=== PATIENT | male | born 1955 | race Caucasian/White ===

== ENCOUNTER → 2021-11-05 15:30 | Outpatient (CLI) | payer BC, SELFPAY ==
--- NOTE | ~2021-11-05 | XR_ITS ---
XR lumbar spine min 4V DATE: 11/05/2021 16:03 INDICATION: Low back pain TECHNIQUE: AP, lateral, bilateral oblique views, coned lateral lumbosacral view COMPARISON: 09/07/2010 lumbar spine FINDINGS: There is mild dextroscoliosis of the lumbar spine. Included lower thoracic and lumbar pedic les are intact. No fracture or bone destruction. There is degenerative change at the apophyseal joints at L4-5 and L5-S1 in particular, with associate d grade 1 anterolisthesis at L4-5. There is mild degenerative disc disease and minimal retrolisthesis at L3-4. There is moderate degener ative disc disease at the remaining lumbar and lumbosacral interspaces. The sacroiliac joints are intact. Status post cholecystectomy. IMPRESSION: Mild dextro scoliosis Mild to moderate degenerative disc disease Grade 1 anterolisthesis at L4-5 due to degenerative change at the apophyseal joints Status post cholecystectomy Reviewed, dictated and finalized at location B. IMPRESSION: Mild dextro scoliosis Mild to moderate degenerative disc disease Grade 1 anterolisthesis at L4-5 due to degenerative change at the apophyseal soraya ints Status post cholecystectomy
== END ==
PROVIDERS: PCP Family Medicine; Visit Provider Family Medicine
DX: M54.50 Low back pain, unspecified (principal); M41.86 Other forms of scoliosis, lumbar region; M51.36 Other intervertebral disc degeneration, lumbar region; M43.16 Spondylolisthesis, lumbar region; Z90.49 Acquired absence of other specified parts of digestive tract
CPT/HCPCS: 72110

== ENCOUNTER 2022-06-08 09:01 | Outpatient (CLI) | payer MEDICARE, SELFPAY ==
[2022-06-08 19:31] LABS: Alanine Aminotransferase 38 U/L (6-50); Albumin Level 4.4 g/dL (3.5-5.1); Alkaline Phosphatase 72 U/L (38-126); Anion Gap 8 mmol/L (8-16); Aspartate Amino Transferase 51 U/L (17-59); Bilirubin,Total 0.7 mg/dL (0.2-1.3); Blood Urea Nitrogen 19 mg/dL (9-20); Calcium 9.3 mg/dL (8.4-10.2); Carbon Dioxide 32 mmol/L (22-30); Chloride 102 mmol/L (98-107); Cholesterol 207 mg/dL (0-200); Estimated Glomerular Filt Rate > 60; Glucose 78 mg/dL (65-110); HDL Direct 35 mg/dL; Potassium 4.1 mmol/L (3.4-5.0); Sodium 142 mmol/L (137-145); Triglycerides 268 mg/dL (<150)
[2022-06-08 19:42] LABS: LDL Cholesterol Direct 125 mg/dL
[2022-06-08 19:54] LABS: Hemoglobin A1C 5.2 % (<5.7)
[2022-06-08 20:00] LABS: Prostate Specific Antigen 2.8 ng/mL (< OR = 4.0)
== END 2022-06-08 09:02 | disposition home or self-care (01) ==
LOC: ANHGOSHLAB 09:03
PROVIDERS: PCP Family Medicine; Visit Provider Family Medicine
DX: R73.01 Impaired fasting glucose (principal); E78.5 Hyperlipidemia, unspecified; Z12.5 Encounter for screening for malignant neoplasm of prostate; I10 Essential (primary) hypertension
CPT/HCPCS: 36415; 80053; 80061; 83036; 84153; G0103

== ENCOUNTER → 2022-06-18 11:15 | Outpatient (CLI) | payer MEDICARE, SELFPAY ==
--- NOTE | ~2022-06-18 | MR_ITS ---
MRI of the lumbar spine Clinical History: Lower extremity numbness Technique: Axial T2-weighted images, and sagittal T1-weighted, T2-weighted, and T2 fat-sat images wer e acquired. Findings: There is no fracture or subluxation of the lumbar spine. Vertebral bodies maintain normal h eight and alignment. There are reactive marrow signal changes about the L5-S1 disc space due to under lying degenerative disc disease. No suspicious bone marrow signal abnormality seen. At L1-L2, there is mild facet arthropathy, without disc bulge or herniation. No spinal canal stenosis or neural foraminal narrowing. At L2-L3, there is no disc bulge or herniation. There is facet joint hypertrophy. No spinal canal vee nosis or neural foraminal narrowing. At L3-L4, there is no disc bulge or herniation. There is advanced facet joint hypertrophy. No spinal canal stenosis. Probable minimal right neural foraminal narrowing. Left neural foramen preserved. At L4-L5, there is minimal disc bulge with advanced facet arthropathy and probable prior laminectomy. No spinal canal stenosis. There is moderate to advanced bilateral neural foraminal narrowing, left w orse than right. At L5-S1, there is mild disc bulge with advanced facet arthropathy. No spinal canal stenosis. There i s severe bilateral neural foraminal narrowing, left worse than right. Paravertebral soft tissues are unremarkable. Impression: Moderate degenerative spondylosis, as detailed above, with multilevel neural foraminal narrowing. Reviewed, dictated and finalized at [facility]. Impression: Moderate degenerative spondylosis, as detailed above, with multilevel neural fo raminal narrowing.
== END ==
PROVIDERS: PCP Family Medicine; Visit Provider Family Medicine
DX: R20.0 Anesthesia of skin (principal); M43.06 Spondylolysis, lumbar region; M48.061 Spinal stenosis, lumbar region without neurogenic claudication
CPT/HCPCS: 72148

== ENCOUNTER 2023-04-13 09:17 | Outpatient (CLI) | payer MEDICARE, SELFPAY ==
[2023-04-13 13:12] LABS: Basophils Percent Auto 0.6 % (0.2-1.2); Eosinophils Absolute Auto 0.3 K/mm3 (0-0.3); Eosinophils Percent Auto 4.2 % (0-4.4); Hematocrit 46.5 % (42.0-52.0); Hemoglobin 14.9 g/dL (14.0-18.0); Immature Granulocyte Absolute 0.02 K/mm3 (0.00-0.031); Immature Granulocyte Percent A 0.3 % (0-0.5); Lymphocytes Absolute Auto 2.17 K/mm3 (0.9-3.2); Lymphocytes Percent Auto 33.5 % (18.3-44.2); Mean Corpuscular Hemoglobin 30.1 pg (26-34); Mean Corpuscular Volume 93.9 fl (80-100); Mean Platelet Volume 9.5 fl (7.4-10.4); Monocytes Absolute Auto 0.4 K/mm3 (0.1-0.6); Monocytes Percent Auto 6.8 % (2.6-8.5); Neutrophils Absolute Auto 3.5 K/mm3 (1.3-6.7); Neutrophils Percent Auto 54.6 % (45.5-73.1); Platelet Count Result 209 k/mm3 (150-375); Red Blood Count 4.95 M/mm3 (4.6-6.20); Red Cell Distribution Width 13.2 % (11.5-14.5); White Blood Count 6.5 K/mm3 (4.5-10.0)
[2023-04-13 13:36] LABS: Alanine Aminotransferase 24 U/L (6-50); Albumin Level 4.5 g/dL (3.5-5.1); Alkaline Phosphatase 62 U/L (38-126); Anion Gap 9 mmol/L (8-16); Aspartate Amino Transferase 31 U/L (17-59); Bilirubin,Total 0.9 mg/dL (0.2-1.3); Blood Urea Nitrogen 21 mg/dL (9-20); Calcium 9.1 mg/dL (8.4-10.2); Carbon Dioxide 29 mmol/L (22-30); Chloride 103 mmol/L (98-107); Cholesterol 188 mg/dL (0-200); Estimated Glomerular Filt Rate 55; Glucose 106 mg/dL (65-110); HDL Direct 33 mg/dL; Potassium 4.1 mmol/L (3.4-5.0); Sodium 141 mmol/L (137-145); Triglycerides 151 mg/dL (<150)
[2023-04-13 13:48] LABS: LDL Cholesterol Direct 120 mg/dL
[2023-04-13 13:57] LABS: Prostate Specific Antigen 4.8 ng/mL (< OR = 4.0)
== END 2023-04-13 09:18 | disposition home or self-care (01) ==
LOC: ANHGOSHLAB 09:19
PROVIDERS: PCP Family Medicine; Visit Provider Family Medicine
DX: R53.83 Other fatigue (principal); Z12.5 Encounter for screening for malignant neoplasm of prostate; Z13.228 Encounter for screening for other metabolic disorders; Z13.220 Encounter for screening for lipoid disorders; Z13.6 Encounter for screening for cardiovascular disorders
CPT/HCPCS: 36415; 80053; 80061; 84153; 85025; G0103

== ENCOUNTER 2023-05-11 08:22 | Outpatient (CLI) | payer MEDICARE, SELFPAY ==
[2023-05-11 13:08] LABS: Prostate Specific Antigen 3.1 ng/mL (< OR = 4.0)
== END 2023-05-11 08:23 | disposition home or self-care (01) ==
PROVIDERS: PCP Family Medicine; Visit Provider Family Medicine
DX: R97.20 Elevated prostate specific antigen [PSA] (principal)
CPT/HCPCS: 36415; 84153

== ENCOUNTER 2024-03-22 07:57 | Outpatient (CLI) | payer MEDICARE, SELFPAY ==
[2024-03-22 19:20] LABS: Alanine Aminotransferase 21 U/L (6-50); Albumin Level 4.3 g/dL (3.5-5.1); Alkaline Phosphatase 56 U/L (38-126); Anion Gap 2 mmol/L (4-12); Aspartate Amino Transferase 34 U/L (17-59); Bilirubin,Total 0.6 mg/dL (0.2-1.3); Blood Urea Nitrogen 28 mg/dL (9-20); Calcium 9.3 mg/dL (8.4-10.2); Carbon Dioxide 29 mmol/L (22-30); Chloride 106 mmol/L (98-107); Cholesterol 198 mg/dL (0-200); Estimated Glomerular Filt Rate 47; Glucose 100 mg/dL (65-110); HDL Direct 42 mg/dL; Potassium 4.2 mmol/L (3.4-5.0); Sodium 137 mmol/L (137-145); Triglycerides 185 mg/dL (<150)
[2024-03-22 19:31] LABS: LDL Cholesterol Direct 116 mg/dL
--- OUTSIDE RECORDS SUMMARY | 2024-03-29 10:21 | XMS_ITS ---
Care Plan - [facility] Created on: March 29, 2024 Gabino Beltran Blair : 1955 Sex: Male Author Organization [facility] Address [address] [place] [address] Phone Care Team Providers Care Sales Development Consultant Name Role Phone Unavailable Unavailable Unavailable
--- OUTSIDE RECORDS SUMMARY | 2024-03-29 10:21 | XMS_ITS ---
Author Organization [facility] [employer] [facility] Address [address] [place] [address] Phone Care Team Providers Care Gas Flow Regulator Name Role Phone Unavailable Unavailable Unavailable Problems Includes: Active, inactive, and resolved Problems No Active Problems Plan of Treatment Pending Tests Order Diagnosis Results Due Ordering Provider Radiology short list MRI Prostate Multiparametric Elevated prostate specific antigen [PSA] 12/06/23 Philipp Engle MD Last Documented On 4 7:44AM ; [facility] Lab PSA 05/28/24 Philipp Engle MD Last Documented On 4 2:16PM ; [facility] Future Appointments Date Time Location Provi mario alberto Follow up 06/05/2024 8:15AM [facility] Urology at [facility] Philipp Engle MD Last Documented On 4 12:12PM ; [facility] Assessments Includes: Assessments for all patient encounters No Assessments Recorded Medical Equipment - Implanted Devices Includes: Current and historical Devices No Medical Equipment Recorded Medications Includes: Current and historical Medications Current Medications (continue as prescribed) Lisinopril 20 MG Oral Tablet 11/22/2023 Provider: Diagnosis: Last Documented On 4 4:55PM By Opal Harding ; [facility] hydroCHLOROthiazide 12.5 MG Oral Tablet 11/22/2023 P rovider: Diagnosis: Last Documented On 4 4:55PM By Opal Harding ; [facility] Pravastatin Sodium 20 MG Oral Tablet 11/22/2023 Prov ider: Diagnosis: Last Documented On 4 4:57PM By Opal Harding ; [facility] Past Medications on file Ezetimibe 10 MG Oral Tablet 10/26/2023 - 01/24/2024 Pr ovider: Diagnosis: Last Documented On 11:28AM By Opal Harding ; [facility] Meloxicam 7.5 MG Oral Tablet 10/26/2023 - 01/24/2024 P rovider: Diagnosis: Last Documented On 11:28AM By Opal Harding ; [facility] dilTIAZem HCl ER Beads 180 M G Oral Capsule Extended Release 24 Hour 10/25/2023 - 01/23/2024 Provider: Diagnosis: Last Documented On 11:28AM By Opal Harding ; [facility] Medications Administered Includes: Administered Medications in patient's chart No Administered Medications Recorded Vital Signs Includes: Vital Signs through 03/29/2024 Vital Name 01/02/2024 11:30A 11/22/2023 04: 28P Blood Pressure Sitting (mmHg) 174/74 18 5/84 Pulse Rate-Sitting (bpm) 63 62 Respiration Rate (breaths/min) 18 18 Height (in) 72 72 Weight (lb) 200.8 202 Body Mass Index 27.2 27.4 Body Surface Area 2.1 2.1 Oxygen Saturation (%) 100 96 Last Documented: On 01/02/2024 11:32A M ; [facility] On 11/22/2023 4:32PM ; [facility] Results Includes: Results through 03/29/2024 CREATININE iSTAT [facility] Ordered by Philipp Engle MD on 12/11/19 24 Collected: 12/11/2023 Reported: 12/11/19 24 15:42 Last Documented On 4 12:10PM ; [facility] Reviewed by Nara Sparrow DNP, APRN on 12/12/2023; All test results are final unless otherwise noted. CREATININE iSTAT 1.4 mg/dL (0.6-1.3) H (High) Last Documented On 4 6:51PM ; [facility] Note: CC'd Providers: ,,,,,,,,,,,,,,,,,,,,,,,,,,,Specimen Number: [id number] Reported Physicians [facility] Ordered by Philipp Engle MD on 12/11/19 24 Collected: 12/11/2023 Reported: 12/11/19 24 15:42 Last Documented On 4 12:10PM ; [facility] Reviewed by Nara Sparrow DNP, APRN on 12/12/2023; All test results are final unless otherwise noted. Reported Physicians See Note None Last Documented On 12/11/2023 6:51PM ; [facility] Note: Reported Physicians:Ordering: Philipp EngleAttending: Philipp Engle History of Present Illness History of Present Illness not supported for this document type No History of Present Illness Recorded Social History Description Last Updated Never a smoker 01/02/2024 Last Documented On 4 2:16PM ; [facility] Use of tobacco assessment performed 09/2023 Last Documented On 4 2:16PM ; [facility] Smoking Status Unknown Procedures and Surgical History Includes: Procedures through 03/29/2024 Procedures Code Diagnosis Performing Provider Service Location Service Date Autom urinalysis wo micro (CLIA Waved Test) 24908 Elevated prostate specific antigen [PSA] Philipp Engle MD [facility] Urology at [facility] 11/22/2023 Last Documented On 4 2:14PM ; [facility] Medical History Includes: Medical History in patient's chart No Medical History Recorded Family History Includes: Family History in patient's chart No Family History Recorded Review of Systems Review of Systems not supported for this document type No Review of Systems Recorded Mental Status No Mental Status Recorded Functional Status No Functional Status Recorded Physical Exam Physical Exam not supported for this document type No Physical Exam Recorded Allergies Includes: Active, inactive, and resolved Allergies Substance Type Reaction Onset Date Resolved Date Statu s Penicillins Allergy Skin Rashes / Er uption of skin, Hives / Urticaria 11/22/2023 Active Last Documented On 4 11:29AM ; [facility] Encounters Includes: Encounters through 03/29/2024 Encounter Provider Location Date Check-In Time Check-Out Time Diagnosis Follow up Philipp Engle MD [facility] Urology at [facility] 4 10:14AM 12:12PM New Patient (15') Philipp Engle MD [facility] Urology at [facility] 4 3:41PM 11:59PM Insurance Includes: Active Insurance Policies Plan Name Member ID Group # Subscriber Relationship Effect kenneth Dates 1 - Medicare : [id number] Gabino Beltran Self 2 - [facility] / Supp:supp [id number] Gabino Beckwith Clinical Notes Includes: Signed Clinical Notes starting from 04/16/2022 * Progress note Date Encounter Last Documented by 01/02/2024 Follow up Last documented on 01/02/2024; 2:16 PM, Philipp Engle MD; [facility] Chief Complaint elev psa baseline 3 to 3.1 to 4.6 to 5.7 History of Present Illness Gabino Beltran is a 68 year old male. - Allergy list reviewed - Problem list reviewed - Medication list reviewed elev psa baseline 3 to 3.1 to 4.6 to 5.7 Prostate volume MRI is 40 cc PSA D = 0.14 MRI no malignancy Tests Urinalysis Was Performed: Urinalysis Results: Value Urine pH 6.0 An automated urinalysis without microscopic exam and urine appearance clear. Urine specific gravity 1.010, protein negative, glucose negative, bilirubin negative, urobilinogen normal, nitrate negative, ketones negative, leukocyte esterase negative, and occult blood negative. Previous Tests Treatment Procedures: - Colonoscopy 08/27/2023 Social History Tobacco use: Never a smoker. - Use of tobacco assessment performed Review Of Systems Denies Chest pain, shortness of breath Denies fever or chills Denies Nausea/vomiting Physical Findings - Vitals taken 01/02/2024 11:30 am BP-Sitting 174/74 mmHg Pulse Rate-Sitting 63 bpm Respiration Rate 18 per min Height 72 in Weight 200 lbs 12.8 oz Body Mass Index 27.2 kg/m2 Body Surface Area 2.1 m2 Oxygen Saturation 100 % Physician's Services: For adult: Value - Screening for adult depression: - 0 01/02/2024 impression and score PHQ2 Abd soft, nontender, nondistended Alert and oriented x 3 Extremities warm with no swelling ANICETO 50 grams firm , irregular but no hard nodules Counseling/Education - Weight Management/Dietary advice Education User Defined 28 Bothered by feelings of sadness, depression or helplessness in the past month was 0 and loss of pleasure from usual activities was 0. Patient screened for future fall risk documentation of no falls in past year; Standardized depression screening: negative for symptoms No significant symptoms, PHQ2 score 0-4. 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 Chief Complaint elev psa baseline 3 to 3.1 to 4.6 to 5.7 History of Present Illness Chilo Beltran is a 68 year old male. - Allergy list reviewed - Problem list reviewed - Medication list reviewed elev psa baseline 3 to 3.1 to 4.6 to 5.7 Tests Urinalysis Was Performed: Urinalysis Results: Value Urine pH 6.0 An automated urinalysis without microscopic exam and urine appearance clear. Urine specific gravity 1.010, protein negative, glucose negative, bilirubin negative, urobilinogen normal, nitrate negative, ketones negative, leukocyte esterase negative, and occult blood negative. Previous Tests Treatment Procedures: - Colonoscopy 08/27/2023 Social History Tobacco use: Never a smoker. - Use of tobacco assessment performed Review Of Systems Denies Chest pain, shortness of breath Denies fever or chills Denies Nausea/vomiting Physical Findings - Vitals taken 11/22/2023 04:28 pm BP-Sitting 185/84 mmHg Pulse Rate-Sitting 62 bpm Respiration Rate 18 per min Height 72 in Weight 202 lbs Body Mass Index 27.4 kg/m2 Body Surface Area 2.1 m2 Oxygen Saturation 96 % Physician's Services: For adult: Value - Screening for adult depression: - 0 11/22/2023 impression and score PHQ2 Abd soft, nontender, nondistended Alert and oriented x 3 Extremities warm with no swelling ANICETO 50 grams firm , irregular but no hard nodules User Defined 28 Bothered by feelings of sadness, depression or helplessness in the past month was 0 and loss of pleasure from usual activities was 0. Patient screened for future fall risk documentation of no falls in past year; Standardized depression screening: negative for symptoms No significant symptoms, PHQ2 score 0-4. 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
--- OUTSIDE RECORDS SUMMARY | 2024-03-29 10:22 | XMS_ITS | Clinical Summary ---
Author Organization [facility] [employer] [facility] Address [address] [place] [address] Phone Care Team Providers Care Director Of Digital Platforms Name Role Phone Unavailable Unavailable Unavailable Reason for Visit and Chief Complaint Follow up Problems Includes: Problems addressed during this encounter and other active Problems No Active Problems Plan of Treatment mp MRI reviewed and no cancer psa / free psa in 6 months - Last Documented On 01/02/2024 2:16PM ; [facility] Pending Tests Order Diagnosis Results Due Ordering Provider Radiology short list MRI Prostate Multiparametric Elevated prostate specific antigen [PSA] 12/06/23 Philipp Engle MD Last Documented On 4 7:44AM ; [facility] Lab PSA 05/28/24 Philipp Engle MD Last Documented On 4 2:16PM ; [facility] Future Appointments Date Time Location Provi mario alberto Follow up 06/05/2024 8:15AM [facility] Philipp Engle MD Last Documented On 4 12:12PM ; [facility] Assessments Includes: Assessments from this encounter Findings elev psa - Last Documented On 01/02/2024 2:16PM ; [facility] baseline 3 to 3.1 to 4.6 to 5.7 - Last Documented On 01/02/2024 2:16PM ; [facility] 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 Medical Equipment - Implanted Devices Includes: Current Devices No Medical Equipment Recorded Medications Includes: Medications discussed during this encounter and other current Medications Current Medications (continue as prescribed) Lisinopril 20 MG Oral Tablet 11/22/2023 Provider: Diagnosis: Last Documented On 4 4:55PM By Opal Harding ; [facility] hydroCHLOROthiazide 12.5 MG Oral Tablet 11/22/2023 P tiffanyder: Diagnosis: Last Documented On 4 4:55PM By Opal Harding ; [facility] Pravastatin Sodium 20 MG Oral Tablet 11/22/2023 Prov ider: Diagnosis: Last Documented On 4 4:57PM By Opal Harding ; [facility] Medications Administered Includes: Administered Medications from this encounter No Administered Medications Recorded Vital Signs Includes: Vital Signs from this encounter Vital Name 01/02/2024 11:30A Blood Pressure Sitting (mmHg) 174/74 Pulse Rate-Sitting (bpm) 63 Respiration Rate (breaths/min) 18 Height (in) 72 Weight (lb) 200.8 Body Mass Index 27.2 Body Surface Area 2.1 Oxygen Saturation (%) 100 Last Documented: On 01/02/2024 11:32A M ; [facility] [employer] [facility] Results Includes: Results discussed during this encounter No Results Recorded For Specified Dates History of Present Illness Includes: History of Present Illness from this encounter DIDI Beltran is a 68 year old male. - Allergy list reviewed - Problem list reviewed - Medication list reviewed elev psa baseline 3 to 3.1 to 4.6 to 5.7 Prostate volume MRI is 40 cc PSA D = 0.14 MRI no malignancy Bothered by feelings of sadness, depression or helplessness in the past month was 0 and loss of pleasure from usual activities was 0. Patient screened for future fall risk documentation of no falls in past year; Standardized depression screening: negative for symptoms No significant symptoms, PHQ2 score 0-4. Social History Description Last Updated Never a smoker 01/02/2024 Last Documented On 4 2:16PM ; [facility] Use of tobacco assessment performed 09/2023 Last Documented On 4 2:16PM ; [facility] Smoking Status Unknown Procedures and Surgical History Includes: Procedures from this encounter Procedures Code Diagnosis Performing Provider Service L ocation Service Date urine specific gravity 1.010 17554 Last Documented On 4 12:02PM ; [facility] urine pH 6.0 96751 Last Documented On 4 12:02PM ; [facility] urine glucose negative Last Documented On 4 12:02PM ; [facility] urine ketones negative Last Documented On 4 12:02PM ; [facility] urine bilirubin negative Last Documented On 4 12:02PM ; [facility] urine protein negative Last Documented On 4 12:02PM ; [facility] urine leukocyte esterase negative [id number] Last Documented On 4 12:02PM ; [facility] urine nitrate negative Last Documented On 4 12:02PM ; [facility] urine urobilinogen normal Last Documented On 4 12:02PM ; [facility] an automated urinalysis without microscopic exam [id number] Last Documented On 4 12:02PM ; [facility] urinalysis results - occult blood negative 24651 Last Documented On 4 12:02PM ; [facility] urine appearance clear Last Documented On 4 12:02PM ; [facility] colonoscopy 08/27/2023 [id number] Last Documented On 4 11:34AM ; [facility] Medical History Includes: Medical History addressed during this encounter No Medical History Recorded Family History Includes: Family History addressed during this encounter No Family History Recorded Review of Systems Includes: Review of Systems from this encounter Denies Chest pain, shortness of breath Denies fever or chills Denies Nausea/vomiting Mental Status Includes: Mental Status from this encounter No Mental Status Recorded Functional Status Includes: Functional Status from this encounter No Functional Status Recorded Physical Exam Includes: Physical Exam from this encounter Allergies Includes: Active Allergies Substance Type Reaction Onset Date Resolved Date Statu s Penicillins Allergy Skin Rashes / Er uption of skin, Hives / Urticaria 11/22/2023 Active Last Documented On 4 11:29AM ; [facility] Encounters Encounter Provider Location Date Check-In Time Check-Out Time Diagnosis Follow up Philipp Engle MD [facility] 4 10:14AM 12:12PM Insurance Includes: Active Insurance Policies Plan Name Member ID Group # Subscriber Relationship Effect kenneth Dates 1 - Medicare : [id number] Gabino Beltran Self 2 - [facility] / Supp:supp [id number] Gabino Beltran Self Clinical Notes Includes: Clinical Notes from this encounter * Progress note Date Encounter Last Documented by 01/02/2024 Follow up Last documented on 01/02/2024; 2:16 PM, Philipp Engle MD; [facility] 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
--- OUTSIDE RECORDS SUMMARY | 2024-03-29 10:22 | XMS_ITS | Clinical Summary ---
Author Organization [facility] [employer] Address [address] [place] [address] Phone Care Team Providers Care Shove Up Name Role Phone Unavailable Unavailable Unavailable Reason for Visit and Chief Complaint New Patient (15') Problems Includes: Problems addressed during this encounter and other active Problems No Active Problems Plan of Treatment mp MRI - Last Documented On 11/22/2023 5:15PM ; [facility] Pending Tests Order Diagnosis Results Due Ordering Provider Radiology short list MRI Prostate Multiparametric Elevated prostate specific antigen [PSA] 12/06/23 Philipp Engle MD Last Documented On 4 7:44AM ; [facility] Lab PSA 05/28/24 Philipp Engle MD Last Documented On 4 2:16PM ; [facility] Future Appointments Date Time Location Provi mario alberto Follow up 06/05/2024 8:15AM [facility] hPilipp Engle MD Last Documented On 4 12:12PM ; [facility] Assessments Includes: Assessments from this encounter Findings elev psa - Last Documented On 11/22/2023 5:15PM ; [facility] baseline 3 to 3.1 to 4.6 to 5.7 - Last Documented On 11/22/2023 5:15PM ; [facility] 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 Medical Equipment - Implanted Devices Includes: Current Devices No Medical Equipment Recorded Medications Includes: Medications discussed during this encounter and other current Medications Current Medications (continue as prescribed) Lisinopril 20 MG Oral Tablet 11/22/2023 Provider: Diagnosis: Last Documented On 4 4:55PM By Opal Harding ; [facility] hydroCHLOROthiazide 12.5 MG Oral Tablet 11/22/2023 P tiffanyder: Diagnosis: Last Documented On 4 4:55PM By Opal Harding ; [facility] [employer] Pravastatin Sodium 20 MG Oral Tablet 11/22/2023 Prov ider: Diagnosis: Last Documented On 4 4:57PM By Opal Harding ; [facility] Medications Administered Includes: Administered Medications from this encounter No Administered Medications Recorded Vital Signs Includes: Vital Signs from this encounter Vital Name 11/22/2023 04:28P Blood Pressure Sitting (mmHg) 185/84 Pulse Rate-Sitting (bpm) 62 Respiration Rate (breaths/min) 18 Height (in) 72 Weight (lb) 202 Body Mass Index 27.4 Body Surface Area 2.1 Oxygen Saturation (%) 96 Last Documented: On 11/22/2023 4:32PM ; [facility] [employer] [facility] Results Includes: Results discussed during this encounter No Results Recorded For Specified Dates History of Present Illness Includes: History of Present Illness from this encounter DIDI Beltran is a 68 year old male. - Allergy list reviewed - Problem list reviewed - Medication list reviewed elev psa baseline 3 to 3.1 to 4.6 to 5.7 Bothered by feelings of sadness, depression or helplessness in the past month was 0 and loss of pleasure from usual activities was 0. Patient screened for future fall risk documentation of no falls in past year; Standardized depression screening: negative for symptoms No significant symptoms, PHQ2 score 0-4. Social History Description Last Updated Never a smoker 11/22/2023 Last Documented On 4 5:15PM ; [facility] Use of tobacco assessment performed 10/27 Last Documented On 4 5:15PM ; [facility] Smoking Status Unknown Procedures and Surgical History Includes: Procedures from this encounter Procedures Code Diagnosis Performing Provider Service Location Service Date Autom urinalysis wo micro (CLIA Waved Test) 91291 Elevated prostate specific antigen [PSA] Philipp Engle MD [facility] 11/22/2023 Last Documented On 4 2:14PM ; [facility] urine specific gravity 1.010 93261 Last Documented On 4 4:13PM ; [facility] urine pH 6.0 95226 Last Documented On 4 4:13PM ; [facility] urine glucose negative Last Documented On 4 4:13PM ; [facility] urine ketones negative Last Documented On 4 4:13PM ; [facility] urine bilirubin negative Last Documented On 4 4:13PM ; [facility] urine protein negative Last Documented On 4 4:13PM ; [facility] urine leukocyte esterase negative 87416 Last Documented On 4 4:13PM ; [facility] urine nitrate negative Last Documented On 4 4:13PM ; [facility] urine urobilinogen normal Last Documented On 4 4:13PM ; [facility] an automated urinalysis without microscopic exam 62498 Last Documented On 4 4:13PM ; [facility] urinalysis results - occult blood negative 86541 Last Documented On 4 4:13PM ; [facility] urine appearance clear Last Documented On 4 4:13PM ; [facility] colonoscopy 08/27/2023 12405 Last Documented On 4 4:28PM ; [facility] Medical History Includes: [...] Active Last Documented On 4 11:29AM ; [facility] Encounters Encounter Provider Location Date Check-In Time Check-Out Time Diagnosis New Patient (15') Philipp Engle MD [facility] 4 3:41PM 11:59PM Insurance Includes: Active Insurance Policies Plan Name Member ID Group # Subscriber Relationship Effect [id number] Dates 1 - Medicare : [id number] Gabino Beltran Self 2 - Aar / Supp:supp [id number] Gabino Beckwith Clinical Notes Includes: Clinical Notes from this encounter * Progress note Date Encounter Last Documented by 11/22/2023 New Patient (15') Last documente d on 11/22/2023; 5:15 PM, Philipp Engle MD; [facility] 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
== END 2024-03-22 07:58 | disposition home or self-care (01) ==
LOC: ANHGOSHLAB 07:59
PROVIDERS: PCP Family Medicine; Visit Provider Family Medicine
DX: E78.5 Hyperlipidemia, unspecified (principal); Z13.220 Encounter for screening for lipoid disorders; Z13.228 Encounter for screening for other metabolic disorders
CPT/HCPCS: 36415; 80053; 80061

== ENCOUNTER 2024-06-20 08:13 | Outpatient (CLI) | payer MEDICARE, SELFPAY ==
--- OUTSIDE RECORDS SUMMARY | 2024-06-20 08:21 | XMS_ITS | Patient Health Record ---
Author Organization [facility] Address [address] [place] [address] Care Team Providers Care Encoding Clerk Name Role Phone Esteban Street DO Primary Care Provider Deysi Bone HEEL LINING PASTER, FIDENCIO Unavailable ALLERGIES Allergen (clinical drug ingredient) Drug/Non Drug Allergy documented on EMR Reaction Allergy Type Onset Date Status penicillin V Penicillin V Potassium Unknown Drug Allergy Active REASON FOR REFERRAL No Information MEDICATIONS Medication SIG (Take, Route, Frequency, Duration) Notes Start Date End Date Status Lisinopril Active Pravastatin Sodium A ctive hydroCHLOROthiazide Active Cartia XT Not-Taking Ezetimibe Active acetaZOLAMIDE Not-Ta raymond Dicyclomine HCl 20 MG 1 tablet Orally up to 3-4 times a day for abdominal pain for 30 day(s) 10/20/2018 Not-Taking SOCIAL HISTORY Tobacco Use: Social History Observation Description Date Details (start date - stop date) Never Smoker NA - NA Sex Assigned At : Social History Observation Description Sex Assigned At Unknown Tobacco Use/Smoking Question Answer Notes Are you a nonsmoker PROBLEMS Problem Type ICD Code Onset Dates Problem Status W/U Status Risk SNOMED Code Notes Problem Irritable bowel syndrome without diarrhea (K58.9) Active confirmed Irritable bowel syndrome (50524551) Problem Right lower quadrant pain (R10.31) Active confirmed Right lower quadrant pain (445249472) Problem Family history of malignant neoplasm of digestive organs (Z80.0) Active confirmed Family history of malignant neoplasm of gastrointestinal tract (200012536) Problem Personal history of colonic polyps (Z86.010) Active confirmed History of poly p of colon (situation) (616913423) PLAN OF TREATMENT Pending Test Test Name Order Date CT Scan : Abdomen and Pelvis with contra st 10/12/2018 Colonoscopy 04/08/2023 Comp. Metabolic Panel (14) 10/20/2018 CBC 10/20/2018 Insurance Providers Payer Name Payer Address Payer Phone Subscriber Number Group Number Insured Name Patient Relationship to Insured Coverage Start Date Coverage End Date Medicare-I L Medicare [address] [place] [id number] Gabino Beltran Self - patient is the insured [facility] Medicare Supplement [address] [employer] CLAIM DIVISION [place], [place] [id number] Devin Gabino Self - patient is the insured MEDICAL (GENERAL) HISTORY Medical History History ICD Code Hypertension Hyperlipidemia Hx colon polyps Gallbladder disease IBS Sleep apnea Surgical History Surgery Date(Month/Year) Neck surgery Cholecystectomy 2011 EGD/EUS 03/2012 Aslam mild g astritis with bile in stomach, o/w neg. Some changes s/o chronic pancreatitis Colonoscopy 01/2012 Normal 3 yr f/u Colonoscopy 2008delilah Normal. Colonoscopy 2005 Aliperti adenomatous po lyp x 1 Colonoscopy 02/2016 Stephy ich Small rectal polyp, removed. Otherwise normal. 5 y r f/u Path hyperplastic EGD 02/2016 Perla Normal. Duo bx n eg. colonoscopy 04/16 Perla- hyperplast ic polyps-repeat in 4 years.
--- OUTSIDE RECORDS SUMMARY | 2024-06-20 08:21 | XMS_ITS | Clinical Summary ---
Author Organization [facility] [employer] Address [address] [facility] [place] [address] Care Team Providers Care White Lead Grinder Name Role Phone Kiko Hodgson MD Primary Care Provider [phone] Source Comments [facility] [employer],non-owned Affiliates and Associated Physician Practices is amultiple site organization consisting of ambulatory clinics and hospital sitesin [place], [place], [place] and [place]. This disclosure is being madepursuant to the Care Everywhere program and may not contain all information available regarding this patient. Last updated 17.[facility] [employer] Allergies Active Allergy Reactions Criticality Noted Date Comments Penicillins 01/15/2014 Medications * Be aware that medications may not be up to date on this document. Alwaysverify current medications with the patient. Medication Sig Dispensed Refills Start Date End Date Status rosuvastatin (CRESTOR) 5 MG tablet Take 5 mg by mouth once daily. Active lisinopril (PRINIVIL; ZESTRIL) 20 MG tablet Take 20 mg by mouth once daily. Active Probiotic Product (PROBIOTIC DAILY PO) Take by mouth once daily. Active Cholecalciferol (VITAMIN D-3) 1000 UNITS CAPS Take by mouth once daily. Active Cyanocobalamin (VITAMIN B-12) 5000 MCG SUBL Dissolve under the tongue once daily. Active [place]-3 Fatty Acids (FISH OIL PO) Take by mouth once daily. 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 Family History Medical History Relation Name Comments Cancer Father Relation Name Status Comments Father Social History Tobacco Use Types Packs/Day Years Used Date Smoking Tobacco: Never Smokeless Tobacco: Never Alcohol Use Standard Drinks/Week Comments Yes 0 (1 standard drink = 0.6 oz pur e alcohol) 2 DRINKS PER DAY Sex and Gender Information Value Date Recorded Sex Assigned at Not on file Gender Identity Not on file Sexual Orientation Not on file Last Filed Vital Signs Vital Sign Reading Time Taken Comments Blood Pressure 150/85 01/25/2014 12:41 PM CDT Pulse 85 01/25/2014 12:41 PM CDT Temperature - - Respiratory Rate - - Oxygen Saturation - - Inhaled Oxygen Concentration - - Weight 88.5 kg (195 lb) 01/25/2014 12:41 PM CDT Height 182.9 cm (6') 01/15/2014 11:16 AM CDT Body Mass Index 26.45 01/15/2014 11:16 AM CDT Plan of Treatment Health Maintenance Due Date Last Done Comments COLOGUARD (AGES 45-75) - COL ON CA SCREENING 1957 COLON MONITORING 1957 COLONOSCOPY - COLON CA SCREENING 1957 CT COLONOGRAPHY - COLON CA SCREENING 1955 Colorectal Cancer Screening 1955 FIT - COLON CA SCREENING 1957 FLEX SIG - COLON CA SCREENING 1955 HEPATITIS C SCREENING 05/27/1975 DTAP/TDAP/TD VACCINES (1 - Tdap) 1976 PNEUMOCOCCAL VACCINE 50+ (1 of 1 - PCV) 06/01/2007 ZOSTER VACCINE (1 of 2) 06/01/2007 COVID-19 VACCINE ( - 2023-2 5 season) 2023 INFLUENZA VACCINE (#1) 2023 DEPRESSION SCREENING 03/28/2024 Respiratory Syncytial Virus (RSV) Vaccine Pt: or over 60 yrs (1 - 1-dose 75+ series) 2032 HEPATITIS B VACCINE Aged Out No longe r eligible based on patient's age to complete this topic HIB VACCINE Aged Out No longer eligi ble based on patient's age to complete this topic HPV VACCINE Aged Out No longer eligi ble based on patient's age to complete this topic MENINGOCOCCAL (Group B) VACC INE SHARED DECISION-MAKING Aged Out No longer eligibl e based on patient's age to complete this topic MENINGOCOCCAL GROUPS A/C/Y/W VACCINE Aged Out No longer eligible b ased on patient's age to complete this topic Care Teams White Lead Grinder Relationship Specialty Start Date End Date Kiko Hodgson MD [address] [place] [id number] PCP - General Family Medicine 01/09/14
--- OUTSIDE RECORDS SUMMARY | 2024-06-20 08:21 | XMS_ITS ---
Author Organization [facility] Address [address] [place] [address] Care Team Providers Care Supervisor Lending Activities Name Role Phone Esteban Street DO Primary Care Provider Unavailab Bone WHEELCHAIR VAN OPERATOR FIRST RESPONDER, FIDENCIO Whalen Encounters Encounter Location Date Provider Diagnosis [facility] [address] [facility] [address] [place] [address] 04/08/2023 FIDENCIO ZAMORANO PLAN OF TREATMENT No Information Progress Notes * Gabino BELTRAN GDOB: [birth year] (67 yo M)Acc No.[id number]:04/08/2023 Patient: Gabino BETLRAN :1955 Age:67 Y Sex:Male Address:[address] [place] [address], [phone] * true * Date:
--- OUTSIDE RECORDS SUMMARY | 2024-06-20 08:21 | XMS_ITS ---
Care Plan - [facility] Created on: June 20, 2024 Gabino Beltran : 1955 Sex: Male Author Organization [facility] Address [address] [place] [address] Phone Care Team Providers Care Director Search Marketing Strategies Name Role Phone Unavailable Unavailable Unavailable
--- OUTSIDE RECORDS SUMMARY | 2024-06-20 08:22 | XMS_ITS | Clinical Summary ---
Author Organization [facility] [employer] Address [address] [place] [address] Phone Care Team Providers Care Flat Bed Operator Name Role Phone Unavailable Unavailable Unavailable Reason for Visit and Chief Complaint Follow up Problems Includes: Problems addressed during this encounter and other active Problems Current Visit Onset Date Resolved Date Provider Conditio n Status Serum Prostate-specific Antigen (Psa) Elevated Unknown Philipp Engle MD Active Last Documented On 5 8:44AM ; [facility] Benign Prostatic Hypertrophy Unknown Philipp Engle MD Active Last Documented On 5 8:44AM ; [facility] Plan of Treatment psa / free psa in 6 months - Last Documented On 06/05/2024 9:05AM ; [facility] Pending Tests Order Diagnosis Results Due Ordering Provider Radiology short list MRI Prostate Multiparametric Elevated prostate specific antigen [PSA] 12/06/23 Philipp Engle MD Last Documented On 4 7:44AM ; [facility] Lab PSA 05/28/24 Philipp Engle MD Last Documented On 4 2:16PM ; [facility] Lab PSA - Free & Total 12/07/24 Nara Sparrow DNP [employer] Last Documented On 5 9:15AM ; [facility] Future Appointments Date Time Location Provi mario alberto Follow up 01/08/2025 8:00AM [facility] Philipp Engle MD Last Documented On 5 9:17AM ; [facility] Assessments Includes: Assessments from this encounter Findings elev psa - Last Documented On 06/05/2024 9:05AM ; [facility] baseline 3 to 3.1 to 4.6 to 5.7 to 3.9 - Last Documented On 06/05/2024 9:05AM ; [facility] negative MRI of prostate - Last Documented On 06/05/2024 9:05AM ; [facility] post void dribble - Last Documented On 06/05/2024 9:05AM ; [facility] nocturi 1-2 x - Last Documented On 06/05/2024 9:05AM ; [facility] 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 Medical Equipment - Implanted Devices Includes: Current Devices No Medical Equipment Recorded Medications Includes: Medications discussed during this encounter and other current Medications Discontinued / Stopped on this date on 11/22/2023 Pravastatin Sodium 20 MG Oral Tablet Prov ider: Diagnosis: Last Documented On 5 8:39AM By Opal Harding ; [facility] Current Medications (continue as prescribed) Rosuvastatin Calcium 20 MG Oral Tablet 03/29/2024 - Provider: Diagnosis: Last Documented On 5 8:39AM By Opal Harding ; [facility] Lisinopril 20 MG Oral Tablet 11/22/2023 Provider: Diagnosis: Last Documented On 4 4:55PM By Opal Harding ; [facility] hydroCHLOROthiazide 12.5 MG Oral Tablet 11/22/2023 P rovider: Diagnosis: Last Documented On 4 4:55PM By Opal Harding ; [facility] Past Medications on file Ezetimibe 10 MG Oral Tablet 10/26/2023 - 01/24/2024 Pr ovider: Diagnosis: Last Documented On 4 11:28AM By Opal Harding ; [facility] Meloxicam 7.5 MG Oral Tablet 10/26/2023 - 01/24/2024 P rovider: Diagnosis: Last Documented On 4 11:28AM By Opal Harding ; [facility] dilTIAZem HCl ER Beads 180 M G Oral Capsule Extended Release 24 Hour 10/25/2023 - 01/23/2024 Provider: Diagnosis: Last Documented On 4 11:28AM By Opal Harding ; [facility] Medications Administered Includes: Administered Medications from this encounter No Administered Medications Recorded Vital Signs Includes: Vital Signs from this encounter Vital Name 06/05/2024 08:40A Blood Pressure Sitting (mmHg) 153/69 Pulse Rate-Sitting (bpm) 64 Respiration Rate (breaths/min) 18 Height (in) 72 Weight (lb) 199.8 Body Mass Index 27.1 Body Surface Area 2.1 Oxygen Saturation (%) 100 Last Documented: On 06/05/2024 8:42AM ; [facility] Results Includes: Results discussed during this encounter No Results Recorded For Specified Dates History of Present Illness Includes: History of Present Illness from this encounter DIDI Beltran is a 69 year old male. - Allergy list reviewed - Problem list reviewed - Medication list reviewed Presents for elevated PSA 05/28/2024 PSA - 3.9 No urinary issues baseline 3 to 3.1 to 4.6 to 5.7 to 3.9 12/11/2023 mpMRI - Benign Prostate volume MRI is 40 cc PSA D = 0.14 Bothered by feelings of sadness, depression or helplessness in the past month was 0 and loss of pleasure from usual activities was 0. Patient screened for future fall risk documentation of no falls in past year; Standardized depression screening: negative for symptoms No significant symptoms, PHQ2 score 0-4. Social History Description Last Updated Never a smoker 01/02/2024 Last Documented On 5 8:44AM ; [facility] [employer] [facility] [employer] Use of tobacco assessment performed 09/2023 Last Documented On 5 8:44AM ; [facility] [employer] [facility] [employer] Smoking Status Unknown Procedures and Surgical History Includes: Procedures from this encounter Procedures Code Diagnosis Performing Provider Service L ocation Service Date colonoscopy 04/28/2023 97661 Last Documented On 5 8:39AM ; [facility] [employer] Medical History Includes: Medical History addressed during this encounter No Medical History Recorded Family History Includes: Family History addressed during this encounter No Family History Recorded Review of Systems Includes: Review of Systems from this encounter Constitutional: Patient denies fever, chills, and weight loss. Gastrointestinal: Patient denies abdominal pain, nausea/vomiting, and change in bowels. Genitourinary: Patient denies incontinence, painful urination, and blood in urine. Remaining 12 point ROS are negative Mental Status Includes: Mental Status from this encounter No Mental Status Recorded Functional Status Includes: Functional Status from this encounter No Functional Status Recorded Physical Exam Includes: Physical Exam from this encounter Immunizations Includes: Immunizations addressed during this encounter Vaccine Dose # Date Site Reaction(s) Status Source Influenza 6 mos + Trivalent PF 0.5ml FLUZONE 1 12/27/2023 Complete (Reported) Patient Last Documented On 5 8:40AM ; [facility] Influenza 65 and older Triva lent High Dose PF 0.5ml FLUAD 1 12/27/2023 Complete (Reported) Patient Last Documented On 5 8:40AM ; [facility] Allergies Includes: Active Allergies Substance Type Reaction Onset Date Resolved Date Statu s Penicillins Allergy Skin Rashes / Er uption of skin, Hives / Urticaria 11/22/2023 Active Last Documented On 5 8:39AM ; [facility] Encounters Encounter Provider Location Date Check-In Time Check-Out Time Diagnosis Follow up Philipp Engle MD [facility] 5 8:12AM 10:13AM Insurance Includes: Active Insurance Policies Plan Name Member ID Group # Subscriber Relationship Effect kenneth Dates 1 - Medicare : [id number] Gabino Beltran Self 2 - [facility] / Supp:supp [id number] Gabino Beckwith Clinical Notes Includes: Clinical Notes from this encounter * Progress note Date Encounter Last Documented by 06/05/2024 Follow up Last documented on 06/05/2024; 9:05 AM, Philipp Engle MD; [facility] Active Problems & Conditions - Benign Prostatic Hypertrophy - Serum Prostate-specific Antigen (Psa) Elevated Chief Complaint elev psa History of Present Illness Gabino Beltran is a 69 year old male. - Allergy list reviewed - Problem list reviewed - Medication list reviewed Presents for elevated PSA 05/28/2024 PSA - 3.9 No urinary issues baseline 3 to 3.1 to 4.6 to 5.7 to 3.9 12/11/2023 mpMRI - Benign Prostate volume MRI is 40 cc PSA D = 0.14 Previous Tests Treatment Procedures: - Colonoscopy 04/28/2023 Current Medication - hydroCHLOROthiazide 12.5 MG Oral Tablet Once a day 0 days, 0 refills - Lisinopril 20 MG Oral Tablet Once a day 0 days, 0 refills - Rosuvastatin Calcium 20 MG Oral Tablet Once a day 90 days, 0 refills Social History Tobacco use: Never a smoker. - Use of tobacco assessment performed Allergies - Penicillins Reaction: Hives / Urticaria, Skin Rashes / Eruption of skin Review Of Systems Constitutional: Patient denies fever, chills, and weight loss. Gastrointestinal: Patient denies abdominal pain, nausea/vomiting, and change in bowels. Genitourinary: Patient denies incontinence, painful urination, and blood in urine. Remaining 12 point ROS are negative Physical Findings - Vitals taken 06/05/2024 08:40 am BP-Sitting 153/69 mmHg Pulse Rate-Sitting 64 bpm Respiration Rate 18 per min Height 72 in Weight 199 lbs 12.8 oz Body Mass Index 27.1 kg/m2 Body Surface Area 2.1 m2 Oxygen Saturation 100 % Physician's Services: For adult: Value - Screening for adult depression: - 0 06/05/2024 impression and score PHQ2 General: Well nourished, in no distress Head/Neck: Normocephalic/atraumatic. Extraocular movements intact. Midline trachea. 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
--- OUTSIDE RECORDS SUMMARY | 2024-06-20 08:22 | XMS_ITS | Clinical Summary ---
Author Organization [facility] [employer] Address [address] [place] [address] Phone Care Team Providers Care Logging Worker Name Role Phone Unavailable Unavailable Unavailable Reason for Visit and Chief Complaint New Patient (15') Problems Includes: Problems addressed during this encounter and other active Problems No Active Problems Plan of Treatment mp MRI - Last Documented On 11/22/2023 5:15PM ; [facility] Pending Tests Order Diagnosis Results Due Ordering Provider Radiology short list MRI Prostate Multiparametric Elevated prostate specific antigen [PSA] 12/06/23 Philipp Engle MD Last Documented On 4 7:44AM ; [facility] Lab PSA 05/28/24 Philipp Engle MD Last Documented On 4 2:16PM ; [facility] Future Appointments Date Time Location Provi mario alberto Follow up 01/08/2025 8:00AM [facility] Philipp Engle MD Last Documented On 5 9:17AM ; [facility] Assessments Includes: Assessments from this encounter Findings elev psa - Last Documented On 11/22/2023 5:15PM ; [facility] baseline 3 to 3.1 to 4.6 to 5.7 - Last Documented On 11/22/2023 5:15PM ; [facility] 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 Medical Equipment - Implanted Devices Includes: Current Devices No Medical Equipment Recorded Medications Includes: Medications discussed during this encounter and other current Medications Current Medications (continue as prescribed) Rosuvastatin Calcium 20 MG Oral Tablet 03/29/2024 - Provider: Diagnosis: Last Documented On 5 8:39AM By Opal Harding ; [facility] Lisinopril 20 MG Oral Tablet 11/22/2023 Provider: Diagnosis: Last Documented On 4 4:55PM By Opal Harding ; [facility] hydroCHLOROthiazide 12.5 MG Oral Tablet 11/22/2023 [place] tiffanyder: Diagnosis: Last Documented On 4 4:55PM By Opal Harding ; [facility] Medications Administered Includes: Administered [...] 96 Last Documented: On 11/22/2023 4:32PM ; [facility] Results Includes: Results discussed during [...] 11/22/2023 Last Documented On 4 5:15PM ; [facility] Use of tobacco assessment performed 10/27 Last Documented On 4 5:15PM ; [facility] Smoking Status Unknown Procedures and Surgical History Includes: Procedures from this encounter Procedures Code Diagnosis Performing Provider Service Location Service Date Autom urinalysis wo micro (CLIA Waved Test) 94580 Elevated prostate specific antigen [PSA] Philipp Engle MD [facility] 11/22/2023 Last Documented On 4 2:14PM ; [facility] urine specific gravity 1.010 71667 Last Documented On 4 4:13PM ; [facility] urine pH 6.0 69044 Last Documented On 4 4:13PM ; [facility] urine glucose negative Last Documented On 4 4:13PM ; [facility] urine ketones negative Last Documented On 4 4:13PM ; [facility] urine bilirubin negative Last Documented On 4 4:13PM ; [facility] urine protein negative Last Documented On 4 4:13PM ; [facility] urine leukocyte esterase negative [id number] Last Documented On 4 4:13PM ; [facility] urine nitrate negative Last Documented On 4 4:13PM ; [facility] urine urobilinogen normal Last Documented On 4 4:13PM ; [facility] an automated urinalysis without microscopic exam [id number] Last Documented On 4 4:13PM ; [facility] urinalysis results - occult blood negative [id number] Last Documented On 4 4:13PM ; [facility] urine appearance clear Last Documented On 4 4:13PM ; [facility] colonoscopy 08/27/2023 [id number] Last Documented On 4 4:28PM ; [facility] Medical History Includes: Medical [...] Active Last Documented On 5 8:39AM ; [facility] Encounters Encounter Provider Location Date Check-In Time Check-Out Time Diagnosis New Patient (15') Philipp Engle MD [facility] 4 3:41PM 11:59PM Insurance Includes: Active Insurance Policies Plan Name Member ID Group # Subscriber Relationship Effect kenneth Dates 1 - Medicare : [id number] Gabino Beckwith 2 - [facility] / Supp:supp [id number] Gabino Beckwith Clinical Notes Includes: Clinical Notes from this encounter * Progress note Date Encounter Last Documented by 11/22/2023 New Patient (15') Last documente d on 11/22/2023; 5:15 PM, Philipp Engle MD; [facility] 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
--- OUTSIDE RECORDS SUMMARY | 2024-06-20 08:22 | XMS_ITS ---
Author Organization [facility] [employer]. Address [address] [place] [address] Phone Care Team Providers Care Market Research Analyst Name Role Phone Unavailable Unavailable Unavailable Problems Includes: Active, inactive, and resolved Problems All Visits Onset Date Resolved Date Provider Condition S tatus Serum Prostate-specific Antigen (Psa) Elevated Unknown Philipp Engle MD Active Last Documented On 5 8:44AM ; [facility] Benign Prostatic Hypertrophy Unknown Philipp Engle MD Active Last Documented On 5 8:44AM ; [facility] Plan of Treatment Pending Tests Order Diagnosis Results Due Ordering Provider Radiology short list MRI Prostate Multiparametric Elevated prostate specific antigen [PSA] 12/06/23 Philipp Engle MD Last Documented On 4 7:44AM ; [facility] Lab PSA 05/28/24 Philipp Engle MD Last Documented On 4 2:16PM ; [facility] Lab PSA - Free & Total 12/07/24 Nara Sparrow DNP [facility] Last Documented On 5 9:15AM ; [facility] Future Appointments Date Time Location Provi mario alberto Follow up 01/08/2025 8:00AM [facility] Urology [facility] Philipp Engle MD Last Documented On 5 9:17AM ; [facility] Assessments Includes: Assessments for all patient encounters No Assessments Recorded Medical Equipment - Implanted Devices Includes: Current and historical Devices No Medical Equipment Recorded Medications Includes: Current and historical Medications Current Medications (continue as prescribed) Rosuvastatin Calcium 20 MG Oral Tablet 03/29/2024 - Provider: Diagnosis: Last Documented On 5 8:39AM By Opal Harding ; [facility] Lisinopril 20 MG Oral Tablet 11/22/2023 Provider: Diagnosis: Last Documented On 4 4:55PM By Opal Harding ; [facility] hydroCHLOROthiazide 12.5 MG Oral Tablet 11/22/2023 P rovider: Diagnosis: Last Documented On 4 4:55PM By Opal Harding ; [facility] Past Medications on file Pravastatin Sodium 20 MG Oral Tablet 11/22/2023 - 05/26 Provider: Diagnosis: Last Documented On 5 8:39AM By Opal Harding ; [facility] Ezetimibe 10 MG Oral Tablet 10/26/2023 - 01/24/2024 Pr ovider: Diagnosis: Last Documented On 11:28AM By Opal Harding ; [facility] Meloxicam 7.5 MG Oral Tablet 10/26/2023 - 01/24/2024 P rovider: Diagnosis: Last Documented On 11:28AM By Opal Harding ; [facility] dilTIAZem HCl ER Beads 180 M G Oral Capsule Extended Release 24 Hour 10/25/2023 - 01/23/2024 Provider: Diagnosis: Last Documented On 4 11:28AM By Opal Harding ; [facility] Medications Administered Includes: Administered Medications in patient's chart No Administered Medications Recorded Vital Signs Includes: Vital Signs through 06/20/2024 Vital Name 06/05/2024 08:40A 01/02/2024 11:30A 11/21 04:28P Blood Pressure Sitting (mmHg) 153/69 174/74 185/84 Pulse Rate-Sitting (bpm) 64 63 62 Respiration Rate (breaths/min) 18 18 18 Height (in) 72 72 72 Weight (lb) 199.8 200.8 202 Body Mass Index 27.1 27.2 27.4 Body Surface Area 2.1 2.1 2.1 Oxygen Saturation (%) 100 100 96 Last Documented: On 06/05/2024 8:42AM ; [facility] On 01/02/2024 11:32AM ; [facility] On 11/22/2023 4:32PM ; [facility] Results Includes: Results through 06/20/2024 PSA, TOTAL [facility] Ordered by Philipp Engle MD on 05/28/2024 [address] [facility] [place], [address] Collected: 05/28/2024 Report ed: 05/28/2024 22:05 tel:[phone] Last Documented On 8:25AM ; [facility] Reviewed by Nara Sparrow DNP [facility] on 05/29/2024; All test results are final unless otherwise noted. PSA, TOTAL 3.90 ng/mL (< OR = 4.00) N (Normal) Last Documented On 10:23PM ; [facility] Note: The total PSA value from this assa y system is standardized against the WHO standard. The test result will be approximately 20% lower when compared to the equimolar-standardized total PSA ([place]). Comparison of serial PSA results should be interpreted with this fact in mind. This test was performed using the Siemens chemiluminescent method. Values obtained from different assay methods cannot be usedinterchangeably. PSA levels, regardless ofvalue, should not be interpreted as absoluteevidence of the presence or absence of disease. Reported Physicians [facility] Ordered by Philipp Engle MD on 05/29/19 [address] [place], [address] Collected: 05/28/2024 Report ed: 05/28/2024 22:07 tel:[phone] Last Documented On 8:25AM ; [facility] Reviewed by Nara Sparrow DNP [facility] on 05/29/2024; All test results are final unless otherwise noted. Reported Physicians See Note None Last Documented On 05/28/2024 10:23PM ; [facility] Note: Reported Physicians:Ordering: Philipp Engle [facility] Ordered by Philipp Engle MD on 12/11/19 Collected: 12/11/2023 Reported: 12/11/19 15:42 Last Documented On 12:10PM ; [facility] Reviewed by Nara Sparrow DNP [facility] on 12/12/2023; All test results are final unless otherwise noted. CREATININE iSTAT 1.4 mg/dL (0.6-1.3) H (High) Last Documented On 4 6:51PM ; [facility] Note: CC'd Providers: ,,,,,,,,,,,,,,,,,,,,,,,,,,,Specimen Number: [id number] Reported Physicians [facility] Ordered by Philipp Engle MD on 12/11/19 Collected: 12/11/2023 Reported: 12/11/19 15:42 Last Documented On 4 12:10PM ; [facility] Reviewed by Nara Sparrow DNP [facility] on 12/12/2023; All test results are final unless otherwise noted. Reported Physicians See Note None Last Documented On 12/11/2023 6:51PM ; [facility] Note: Reported Physicians:Ordering: Philipp EngleAttending: Philipp Engle History of Present Illness History of Present Illness not supported for this document type No History of Present Illness Recorded Social History Description Last Updated Never a smoker 01/02/2024 Last Documented On 4 2:16PM ; [facility] Use of tobacco assessment performed 09/2023 Last Documented On 4 2:16PM ; [facility] Smoking Status Unknown Procedures and Surgical History Includes: Procedures through 06/20/2024 Procedures Code Diagnosis Performing Provider Service Location Service Date Autom urinalysis wo micro (CLIA Waved Test) 1950[address] Elevated prostate specific antigen [PSA] Philipp Engle MD [facility] 11/22/2023 Last Documented On 4 2:14PM ; [facility] Medical History Includes: [...] this document type No Physical Exam Recorded Immunizations Includes: Immunizations in patient's chart Vaccine Dose # Date Site Reaction(s) Status Source Influenza 6 mos + Trivalent PF 0.5ml FLUZONE 1 12/27/2023 Complete (Reported) Patient Last Documented On 5 8:40AM ; [facility] Influenza 65 and older Triva lent High Dose PF 0.5ml FLUAD 1 12/27/2023 Complete (Reported) Patient Last Documented On 5 8:40AM ; [facility] Allergies Includes: Active, inactive, and resolved Allergies Substance Type Reaction Onset Date Resolved Date Statu s Penicillins Allergy Skin Rashes / Er uption of skin, Hives / Urticaria 11/22/2023 Active Last Documented On 5 8:39AM ; [facility] Encounters Includes: Encounters through 06/20/2024 Encounter Provider Location Date Check-In Time Check-Out Time Diagnosis Follow up Philipp Engle MD [facility] 5 8:12AM 10:13AM Follow up Philipp Engle MD [facility] 4 10:14AM 12:12PM New Patient (15') Philipp Engle MD [facility] 4 3:41PM 11:59PM Insurance Includes: Active Insurance Policies Plan Name Member ID Group # Subscriber Relationship Effect kenneth Dates 1 - Medicare : [id number] Gabino Beltran Self 2 - [facility] / Supp:supp [id number] Gabino Beckwith Clinical Notes Includes: Signed Clinical Notes starting from 04/16/2022 * Progress note Date Encounter Last Documented by 06/05/2024 Follow up Last documented on 06/05/2024; 9:05 AM, Philipp Engle MD; [facility] 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
--- OUTSIDE RECORDS SUMMARY | 2024-06-20 08:22 | XMS_ITS | Clinical Summary ---
Author Organization [facility] Address [address] [place] [address] Phone Care Team Providers Care Lasting Room Supervisor Name Role Phone Unavailable Unavailable Unavailable Reason for Visit and Chief Complaint Follow up Problems Includes: Problems addressed during this encounter and other active Problems All Visits Onset Date Resolved Date Provider Condition S tatus Serum Prostate-specific Antigen (Psa) Elevated Unknown Philipp Engle MD Active Last Documented On 5 8:44AM ; [facility] Benign Prostatic Hypertrophy Unknown Philipp Engle MD Active Last Documented On 5 8:44AM ; [facility] Plan of Treatment mp MRI reviewed and no cancer psa / free psa in 6 months - Last Documented On 01/02/2024 2:16PM ; [facility] Pending Tests Order Diagnosis Results Due Ordering Provider Radiology short list MRI Prostate Multiparametric Elevated prostate specific antigen [PSA] 12/06/23 Philipp Engle MD Last Documented On 4 7:44AM ; [facility] Lab PSA 05/28/24 Philipp Engle MD Last Documented On 4 2:16PM ; [facility] Future Appointments Date Time Location Provi mario alberto Follow up 01/08/2025 8:00AM [facility] Urology at [facility] Philipp Engle MD Last Documented On 5 9:17AM ; [facility] Assessments Includes: Assessments from this encounter Findings elev psa - Last Documented On 01/02/2024 2:16PM ; [facility] baseline 3 to 3.1 to 4.6 to 5.7 - Last Documented On 01/02/2024 2:16PM ; [facility] 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 Medical Equipment - Implanted Devices Includes: Current Devices No Medical Equipment Recorded Medications Includes: Medications discussed during this encounter and other current Medications Current Medications (continue as prescribed) Rosuvastatin Calcium 20 MG Oral Tablet 03/29/2024 - Provider: Diagnosis: Last Documented On 8:39AM By Opal Harding ; [facility] Lisinopril 20 MG Oral Tablet 11/22/2023 Provider: Diagnosis: Last Documented On 4:55PM By Opal Harding ; [facility] hydroCHLOROthiazide 12.5 MG Oral Tablet 11/22/2023 P tiffanyder: Diagnosis: Last Documented On 4:55PM By Opal Harding ; [facility] [email or web address] [facility] Medications Administered Includes: Administered Medications from this encounter No Administered Medications Recorded Vital Signs Includes: Vital Signs from this encounter Vital Name 01/02/2024 11:30A Blood Pressure Sitting (mmHg) 174/74 Pulse Rate-Sitting (bpm) 63 Respiration Rate (breaths/min) 18 Height (in) 72 Weight (lb) 200.8 Body Mass Index 27.2 Body Surface Area 2.1 Oxygen Saturation (%) 100 Last Documented: On 01/02/2024 11:32A M ; [facility] Results Includes: Results discussed during this [...] 01/02/2024 Last Documented On 4 2:16PM ; [facility] Use of tobacco assessment performed 09/2023 Last Documented On 4 2:16PM ; [facility] Smoking Status Unknown Procedures and Surgical History Includes: Procedures from this encounter Procedures Code Diagnosis Performing Provider Service L ocation Service Date urine specific gravity 1.010 19028 Last Documented On 4 12:02PM ; [facility] urine pH 6.0 76194 Last Documented On 4 12:02PM ; [facility] urine glucose negative Last Documented On 4 12:02PM ; [facility] urine ketones negative Last Documented On 4 12:02PM ; [facility] urine bilirubin negative Last Documented On 4 12:02PM ; [facility] urine protein negative Last Documented On 4 12:02PM ; [facility] urine leukocyte esterase negative [id number] Last Documented On 4 12:02PM ; [facility] urine nitrate negative Last Documented On 4 12:02PM ; [facility] urine urobilinogen normal Last Documented On 4 12:02PM ; [facility] an automated urinalysis without microscopic exam [id number] Last Documented On 4 12:02PM ; [facility] urinalysis results - occult blood negative [id number] Last Documented On 4 12:02PM ; [facility] urine appearance clear Last Documented On 4 12:02PM ; [facility] colonoscopy 08/27/2023 [id number] Last Documented On 4 11:34AM ; [facility] Medical History Includes: Medical [...] Active Last Documented On 5 8:39AM ; [facility] Encounters Encounter Provider Location Date Check-In Time Check-Out Time Diagnosis Follow up Philipp Engle MD [facility] at [facility] 4 10:14AM 12:12PM Insurance Includes: Active Insurance Policies Plan Name Member ID Group # Subscriber Relationship Effect kenneth Dates 1 - Medicare : [id number] Gabino Beltran Self 2 - [employer] / Supp:supp [id number] Gabino Beckwith Clinical Notes Includes: Clinical Notes from this encounter * Progress note Date Encounter Last Documented by 01/02/2024 Follow up Last documented on 01/02/2024; 2:16 PM, Philipp Engle MD; [facility] 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
--- OUTSIDE RECORDS SUMMARY | 2024-06-20 08:23 | XMS_ITS | Clinical Summary ---
Author Organization [facility] Address [facility] [address] [place] [address] Care Team Providers Care Dark Room Attendant Name Role Phone Esteban Street Primary Care Provider [phone] Allergies Active Allergy Reactions Criticality Noted Date Comments Penicillins Hives 02/22/2012 Medications lisinopril 20 MG tablet Take 20 mg by mouth daily. Active pravastatin 20 MG tablet Take 20 mg by mouth nightly at bedtime. Active hydrochlorothia zide 12.5 MG tablet Take 12.5 mg by mouth every morning. Active ezetimibe 10 MG tablet 03/16/2019 Active CARTIA XT 180 MG 24 hr capsule 03/16/2019 Active Family History Medical History Relation Comments Cancer Father colon Cancer Maternal Grandfather Heart Disease Maternal Grandfather Relation Status Comments Father Maternal Grandfather Social History Tobacco Use Types Packs/Day Years Used Date Smoking Tobacco: Never Smokeless Tobacco: Never Alcohol Use Standard Drinks/Week Comments Yes 10 (1 standard drink = 0.6 oz pu re alcohol) Sex and Gender Information Value Date Recorded Sex Assigned at Not on file Legal Sex Male 9:22 PM CDT Gender Identity Not on file Sexual Orientation Not on file Last Filed Vital Signs Vital Sign Reading Time Taken Comments Blood Pressure 115/64 04/06/2019 1:18 PM [employer] Pulse 59 04/06/2019 1:18 PM [employer] Temperature 36.6 C (97.8 F) 04/06/2019 12:51 PM [employer] Respiratory Rate 16 04/06/2019 1:18 PM [employer] Oxygen Saturation 98% 04/06/2019 1:18 PM [employer] Inhaled Oxygen Concentration - - Weight 93 kg (205 lb) 04/02/2019 3:31 PM [employer] Height 182.9 cm (6') 04/02/2019 3:31 PM [employer] Body Mass Index 27.8 04/02/2019 3:31 PM [employer] Plan of Treatment Health Maintenance Due Date Last Done Comments Hepatitis C 06/01/1975 DTaP, Tdap and Td Vaccines (1 - Tdap) 1976 Zoster Vaccines (1 of 2) 06/01/2007 Annual Medicare Wellness Visit 2022 Pneumococcal Vaccine: 65+ Years (1 of 1 - PCV) 2022 COVID-19 Vaccine (3 - season) 2023 02/20/2022, 03/11/2021 Influenza Adult (#1) 2023 02/22/2022, 02/12/2019, 01/26/2018, Additional history exists Colorectal Cancer Screening Colonoscopy (10 Years) 04/06/2029 04/06/2019, RSV Immunization or 60+ Years (1 - 1-dose 75+ series) 2032 Meningococcal B Vaccine Aged Out No l onger eligible based on patient's age to complete this topic Meningococcal Vaccine Aged Out No zeenat samra eligible based on patient's age to complete this topic RSV Immunizations Under 20 Months Aged Out No longer eligible based on patient's age to complete this topic Procedures Procedure Name Priority Date/Time Associated Diagnosis Comments COLONOSCOPY Routine [employer] from Last 3 Months or Most Recently Relevant to Health Maintenance Results * Colonoscopy ( [employer]) Narrative [employer] TO EPIC CONVERSION - [employer] Documented hx of procedure Procedure Note , Generic ConversionMD - 01/29/2018 Documented hx of procedure us Generic Conversion Md BELLO GI PROCEDURE ORDERABLES Final Result [employer] TO EPIC CONVERSION from Last 3 Months or Most Recently Relevant to Health Maintenance Insurance MEDICARE [facility] Care Teams Dark Room Attendant Relationship Specialty Start Date End Date Esteban Street DO [address] [facility] [place] [address] PCP - General FAMILY PRACTICE 09/17/22
[2024-06-20 19:00] LABS: Anion Gap 11 mmol/L (4-12); Blood Urea Nitrogen 21 mg/dL (9-20); Calcium 9.6 mg/dL (8.4-10.2); Carbon Dioxide 31 mmol/L (22-30); Chloride 99 mmol/L (98-107); Cholesterol 207 mg/dL (0-200); Estimated Glomerular Filt Rate > 60; Glucose 94 mg/dL (65-110); HDL Direct 50 mg/dL; Potassium 4.2 mmol/L (3.4-5.0); Sodium 141 mmol/L (137-145); Triglycerides 143 mg/dL (<150)
[2024-06-20 19:10] LABS: LDL Cholesterol Direct 117 mg/dL
== END 2024-06-20 08:14 | disposition home or self-care (01) ==
LOC: ANHGOSHLAB 08:14
PROVIDERS: PCP Family Medicine; Visit Provider Family Medicine
DX: E78.5 Hyperlipidemia, unspecified (principal); Z13.220 Encounter for screening for lipoid disorders; Z13.228 Encounter for screening for other metabolic disorders
CPT/HCPCS: 36415; 80048; 80061

== ENCOUNTER 2025-01-03 15:52 | Outpatient (CLI) | payer MEDICARE, SELFPAY ==
[2025-01-03 18:30] LABS: Alanine Aminotransferase 21 U/L (6-50); Albumin Level 4.6 g/dL (3.5-5.1); Alkaline Phosphatase 70 U/L (38-126); Anion Gap 7 mmol/L (4-12); Aspartate Amino Transferase 33 U/L (17-59); Bilirubin,Total 0.7 mg/dL (0.2-1.3); Blood Urea Nitrogen 19 mg/dL (9-20); Calcium 9.3 mg/dL (8.4-10.2); Carbon Dioxide 30 mmol/L (22-30); Chloride 100 mmol/L (98-107); Estimated Glomerular Filt Rate 59; Glucose 101 mg/dL (65-110); Potassium 4.2 mmol/L (3.4-5.0); Sodium 137 mmol/L (137-145); Total Protein 8.0 g/dL (6.3-8.2)
[2025-01-04 07:09] LABS: PSA, Free 0.52 ng/mL
== END 2025-01-03 15:53 | disposition home or self-care (01) ==
LOC: ANHGOSHLAB 15:54
PROVIDERS: PCP Family Medicine; Visit Provider Family Medicine
DX: I10 Essential (primary) hypertension (principal); Z79.899 Other long term (current) drug therapy
CPT/HCPCS: 36415; 80053; 84153; 84154